=== PATIENT | female | born 1975 | race Caucasian/White ===

== ENCOUNTER → 2021-11-25 | Day surgery (SDC) | payer OTHER ==
[~2021-11-25] VITALS: Ht 167.6 cm; Wt 124.7 kg
[~2021-11-25] MED LIST: BIOTIN PO; LEXAPRO20 MG PO; NORCO 5-325 TA1 EACH PO; QULIPTA60 MG PO; TOPROL XL 50 MG50 MG PO; VITAMIN C PO; XYZAL5 MG PO; ZINC PO
[2021-11-25 06:29] LABS: HCG (URINE) SCREEN NEGATIVE (NEGATIVE)
[2021-11-25 06:46] LABS: HCT 41.6 % (37.0-47.0); HGB 13.6 g/dl (12.5-16.0); MCH 28.8 pg (25.0-31.0); MCHC 32.7 g/dL (32.0-36.0); MCV 88.1 fL (78.0-100.0); MPV 9.8 fL (6.0-9.5); RBC 4.72 M/uL (4.20-5.40); RDW 13.1 % (11.5-14.0); WBC 10.8 K/uL (4.0-10.5)
[2021-11-25 07:09] LABS: ALBUMIN 3.4 g/dL (3.4-5.0); BILIRUBIN - TOTAL 0.3 mg/dL (0.2-1.0); CREATININE 0.65 mg/dL (0.51-0.95); GLOBULIN (CALCULATION) 3.6 g/dL
== END | disposition home or self-care (01) ==
LOC: FAS 05:37
PROVIDERS: Anesthesiology; Orthopaedic Surgery
DX: G56.03 Carpal tunnel syndrome, bilateral upper limbs (principal); M75.102 Unspecified rotator cuff tear or rupture of left shoulder, not specified as traumatic; I10 Essential (primary) hypertension; G43.909 Migraine, unspecified, not intractable, without status migrainosus; G47.30 Sleep apnea, unspecified; F32.A Depression, unspecified; Z99.89 Dependence on other enabling machines and devices; Z79.899 Other long term (current) drug therapy
CPT/HCPCS: 36415; 80053; 84703; J1100; J2250; J2405; J2704; J3010; J7120